=== PATIENT | male | born 1940 | race Caucasian/White ===

== ENCOUNTER 2018-08-30 09:06 | Day surgery (SDC) | payer MEDICARE, OTHER ==
[~2018-08-30 09:06] MED LIST: Lactated Ringers 1,000 ML IV SCH; Lidocaine 1%/Sod Bicarbonate in NS 8.4% 1 ML Syringe IDERM PRN; Sodium Chloride 0.9% 10 ML Syringe FLUSH PRN
--- NOTE | 2018-08-30 10:12 | PCM.PREANE ---
Preanesthetic Assessment - Anesthesia/Transfusion/Family Hx Anesthesia History: Prior Anesthesia Without Reaction Family History of Anesthesia Reaction: No Transfusion History: No Prior Transfusion(s) Intubation History: Unknown - Review of Systems General: Fatigue (with bowel prep), Chills (with bowel prep) Pulmonary: No Symptoms (Former Smoker: quit 1970) Cardiovascular: No Symptoms (HTN,CAD, history of bradycardia, cardiac stent times on placed 01/19/2014 (on plavix)), Lightheadedness (this am getting out of bed and climbing steps.) Gastrointestinal: No Symptoms (GERD diet related. ( takes tums on occasion, 2 times per week)) Neurological: No Symptoms Other: Reports: Diabetes (0941 Blood sugar= 182) - Physical Assessment NPO Status Date: 08/29/18 NPO Status Time: 20:00 (fluids) Pulse: 48 O2 Sat by Pulse Oximetry: 98 Respiratory Rate: 16 Blood Pressure: 160/63 Temperature: 36.9 C Height: 1.75 m Weight: 89 kg ASA Class: 3 Mental Status: Alert & Oriented x3 Airway Class: Mallampati = 3 Dentition: Reports: Normal Dentition, Caries Thyro-Mental Finger Breadths: 3 Mouth Opening Finger Breadths: 2 ROM/Head Extension: Full Lungs: Clear to Auscultation, Normal Respiratory Effort Cardiovascular: Regular Rate, Regular Rhythm, No Murmurs - Lab Values: Laboratory Last Values POC Glucose 182 mg/dL (83-110) H 08/30/18 09:41 All lab values reviewed and noted and within acceptable ranges to proceed with colonoscopy. - Imaging/EKG Impressions: Echocardiogram 2016: EF= 65% EKG: Sinus bradycardia rate=53 first degree AV block, RBBB 05/23/2018 In April 2018, valet cashier gave clear bill of health regarding cardiac presentation. - Allergies Allergies/Adverse Reactions: Allergies Allergy/AdvReac Type Severity Reaction Status Date / Time Siuzczs-Gjw-Khs Reductase Allergy Body Aches Verified 08/30/18 10:09 Inhibitor - Anesthesia Plan Pre-Op Medication Ordered: None - Acknowledgements Anesthesia Type Planned: MAC Pt an Appropriate Candidate for the Planned Anesthesia: Yes Alternatives and Risks of Anesthesia Discussed w Pt/Guardian: Yes Pt/Guardian Understands and Agrees with Anesthesia Plan: Yes PreAnesthesia Questionnaire HEENT History: Reports: Impaired Vision Cardiovascular History: Reports: CAD, High Cholesterol, Hypertension Gastrointestinal History: Reports: Other (See Below) Other Gastrointestinal History: Hemorrhoids, Colon Polyps Genitourinary History: Reports: Other (See Below) Other Genitourinary History: Hematuria, Nephrolithiasis Endocrine/Metabolic History: Reports: Diabetes, Type II, Obesity/BMI 30+ - Past Surgical History HEENT Surgical History: Reports: None Cardiovascular Surgical History: Reports: Coronary Artery Stent Respiratory Surgical History: Reports: None GI Surgical History: Reports: Colon, Polypectomy, Other (See Below) Other GI Surgeries/Procedures: Hemorrhoidectomy Other Female Surgeries/Procedures: Cystoscopy Male Surgical History: Reports: Other (See Below) Endocrine Surgical History: Reports: None Neurological Surgical History: Reports: None Musculoskeletal Surgical History: Reports: Other (See Below) Other Musculoskeletal Surgeries/Procedures:: Left Shoulder Video Arthroscopy with Rotator Cuff Repair Dermatological Surgical History: Reports: None - SUBSTANCE USE Smoking Status *Q: Former Smoker - HOME MEDS Home Medications: Home Meds Cinnamon Bark [Cinnamon] 500 mg PO BID 02/17/14 [History] Fish Oil/Borage/Flax/Om3,6,9#1 [Astatula 3-6-9 Complex Softgel] 1 each PO DAILY [History] Glimepiride 2 mg PO DAILY 02/17/14 [History] Losartan [Cozaar] 100 mg PO DAILY 02/17/14 [History] Multivitamin [Multivitamins] 1 each PO DAILY 02/17/14 [History] Rosuvastatin [Crestor] 20 mg PO BEDTIME 02/17/14 [History] Ubidecarenone [Co Q-10] 50 mg PO DAILY 02/17/14 [History] metFORMIN [Glucophage] 1,000 mg PO TID 02/17/14 [History] Aspirin [Adult Aspirin] 81 mg PO DAILY 08/29/18 [History] Clopidogrel [Plavix] 75 mg PO DAILY 08/29/18 [History] Garlic 1,000 mg PO DAILY 08/29/18 [History] Saxagliptin HCl [Onglyza] 5 mg PO DAILY 08/29/18 [History] Vitamin B Complex [B Complex] 1 tab PO DAILY 08/29/18 [History] - CURRENT (IN HOUSE) MEDS Current Meds: Current Medications Lactated Ringer's (Ringers, Lactated) 1,000 mls @ 125 mls/hr IV ASDIRECTED KEO Stop: 08/30/18 23:00 Lidocaine/Sodium Bicarbonate (Buffered Lidocaine 1% In Ns 8.4%) 0.25 ml IDERM ONETIME PRN PRN Reason: Prior to IV Start Stop: 08/30/18 18:00 Sodium Chloride (Saline Flush) 10 ml FLUSH ASDIRECTED PRN PRN Reason: Keep Vein Open Stop: 08/30/18 18:00
[2018-08-30] MEDS ORDERED: fentaNYL 100 MCG/2 ML SDV ONE (10:17)
[2018-08-30] MEDS ORDERED: Propofol 200 MG/20 ML SDV ONE ×3 (10:17→13:25)
[2018-08-30] MEDS ORDERED: Lidocaine 1% 4 ML ONE (11:29)
--- NOTE | 2018-08-30 12:56 | PCM48HPAN ---
Post Anesthesia Note - EVALUATION WITHIN 48HRS OF ANESTHETIC Vital Signs in Normal Range: Yes Patient Participated in Evaluation: Yes Respiratory Function Stable: Yes Airway Patent: Yes Cardiovascular Function Stable: Yes Hydration Status Stable: Yes Pain Control Satisfactory: Yes Nausea and Vomiting Control Satisfactory: Yes Mental Status Recovered: Yes Pulse Rate: 49 SaO2: 97 Resp Rate: 17 Temperature: 36.6 C Blood Pressure: 134/80
--- NOTE | 2018-08-30 13:05 | PCM.OPNOTE ---
- General Post-Op/Procedure Note Date of Surgery/Procedure: 08/30/18 Operative Procedure(s): colonoscopy with polypectomy Findings: colon polyps Pre Op Diagnosis: family history of colon cancer Post-Op Diagnosis: same Anesthesia Technique: MAC Primary Surgeon: Paulette Sloan Anesthesia Provider: Nancy Rg Pathology: 1. hepatic flexure polyp 2. Transverse colon polyp x2 Fluid Replacement, Intraop: 800 Output, Urine Amount: 0 EBL in mLs: 0 Complications: none apparent Condition: Good
--- NOTE | 2018-08-30 13:10 | PCM.PRNOTE ---
- Free Text/Narrative Note: Operative Report Date of Surgery/Procedure: August 30, 2018 Operative Procedure: Colonoscopy to cecum with polypectomy Pre Op Diagnosis: colorectal cancer surveillance with high risk for colon cancer (first-degree relative with colon cancer) Post-Op Diagnosis: Same Surgeon: Paulette Sloan Anesthesia Technique: MAC Anesthesia Provider: Nancy Rg CRNA IV Fluid Replacement, Intraop: 800cc Output, Urine Amount: 0cc EBL : 0cc Findings: 1. Hepatic flexure polyp 2. Transverse colon polyp x2 Specimens: 1. Hepatic flexure polyp 2. Transverse colon polyp x2 Indication: The patient is a 77 year-old gentleman who presented to the outpatient clinic requesting colorectal cancer screening. The patient has a history of colon cancer in a first-degree relative. He's had a colonoscopy more than 10 years ago. We discussed the procedure of a surveillance colonoscopy including the polypectomy and biopsy. Risks of bleeding and perforation were discussed, the patient understood and wished to proceed. Written and consent was obtained Description of the procedure: The patient was brought to the endoscopy suite and placed in the left lateral decubitus position. Appropriate monitors were applied. The patient was given MAC anesthesia. An anorectal examination was performed, revealing internal hemorrhoids with a small external component and external anal skin tags. The scope was placed into the rectum and advanced to cecum with minimal difficulty requiring abdominal pressure to reach the cecum. The patients cecum was entered , and the ileocecal valve and appendiceal orifice were identified and normal. At this point, the scope was withdrawn, paying careful attention to the mucosa. The patient had . Good bowel prep, allowing for visualization of 85-90 % of the mucosa. A polyp in the hepatic flexure as well as 2 polyps in the transverse colon were seen. These were removed with cold biopsy forceps and sent for histology. In the rectum, the scope was retroflexed and no abnormalities were noted, except for some hemorrhoidal tissue. The scope was placed back in the lumen and the excess air was aspirated. The patient tolerated the procedure well. Complications: none apparent Condition: Good, transported to PACU in stable condition Paulette Sloan MD General Surgery
[2018-08-30 14:11] VITALS: BP 153/75
== END 2018-08-30 13:55 | disposition home or self-care (01) ==
LOC: JD.SDS 09:06
PROVIDERS: ATTEND Surgery
DX: Z12.11 Encounter for screening for malignant neoplasm of colon (principal); D12.3 Benign neoplasm of transverse colon; K63.5 Polyp of colon; K64.9 Unspecified hemorrhoids; I10 Essential (primary) hypertension; E11.9 Type 2 diabetes mellitus without complications; E66.9 Obesity, unspecified; Z68.30 Body mass index [BMI] 30.0-30.9, adult; E78.00 Pure hypercholesterolemia, unspecified; I25.10 Atherosclerotic heart disease of native coronary artery without angina pectoris; E78.5 Hyperlipidemia, unspecified; Z86.010 Personal history of colon polyps; Z87.891 Personal history of nicotine dependence; Z79.84 Long term (current) use of oral hypoglycemic drugs; Z79.82 Long term (current) use of aspirin; Z79.02 Long term (current) use of antithrombotics/antiplatelets; Z79.899 Other long term (current) drug therapy; Z95.5 Presence of coronary angioplasty implant and graft; Z88.8 Allergy status to other drugs, medicaments and biological substances
CPT/HCPCS: 45380; 82962; 88305; J2001; J2704; J7120; 00811; J3010

== ENCOUNTER 2021-02-04 10:24 | Emergency (ER) | payer MEDICARE, OTHER ==
[2021-02-04 10:39] VITALS: BP 82/46; PULSE 73
--- NOTE | 2021-02-04 11:20 | CT ---
Head CT Technique: Multiple axial sections through the brain were obtained. Intravenous contrast was not utilized. Reconstructed coronal and sagittal images were obtained. Comparison: No prior intracranial imaging is available. Findings: Ventricles along with basal cisterns and sulci over the convexities are moderately prominent. No abnormal parenchymal densities are seen. No evidence of intracranial hemorrhage is seen. No midline shift or mass-effect is appreciated. Bone window settings were reviewed. Visualized mastoid sinuses and paranasal sinuses show nothing acute. No acute calvarial abnormality is appreciated. Impression: 1. Senescent change as noted above. 2. No acute intracranial hemorrhage or other acute abnormality is appreciated. Diagnostic code #2
--- NOTE | 2021-02-04 11:51 | EDM.PDOC ---
ED HPI GENERAL MEDICAL PROBLEM - General Chief Complaint: Lower Extremity Injury/Pain Stated Complaint: KNEE AND HIP PAIN Time Seen by Provider: 02/04/21 10:34 Source of Information: Reports: Family, [facility] Records History Limitations: Reports: Altered Mental Status, Other (patient has dementia) - History of Present Illness INITIAL COMMENTS - FREE TEXT/NARRATIVE: The patient presents with his for right hip and knee pain. He is a resident of [facility]. He has bad dementia. She says since 01/24 he has fallen 4 times. It appears his knee gives out. He is on some psych meds and they make him sleep during the day and then he is up at night and he falls. He has pain in his right hip and right knee. He also is on plavix and it is unknown if he hit his head. He has no fever, chills, cough, chest pain, shortness of breath, abdominal pain, nausea and vomiting. Onset: Gradual Duration: Day(s): Location: Reports: Lower Extremity, Right (hip and knee) Quality: Reports: Sharp Severity: Mild Improves with: Reports: Immobilization Worsens with: Reports: Movement Context: Reports: Trauma (falls) Associated Symptoms: Reports: No Other Symptoms - Related Data Allergies Allergy/AdvReac Type Severity Reaction Status Date / Time Ueihgnx-Teh-Ysw Reductase AdvReac Body Aches Verified 08/30/18 13:19 Inhibitor Home Meds: Home Meds RX: Losartan [Cozaar] 100 mg PO DAILY 02/17/14 [History] RX: metFORMIN [Glucophage] 1,000 mg PO BID 02/17/14 [History] RX: Aspirin [Adult Aspirin] 81 mg PO BID 08/29/18 [History] RX: Clopidogrel [Plavix] 75 mg PO QAM 08/29/18 [History] Alogliptin Benzoate [Alogliptin] 12.5 mg PO DAILY 02/04/21 [History] DULoxetine [Cymbalta] 20 mg PO BID 02/04/21 [History] Diclofenac Sodium [Voltaren 1% Gel] 4 gm TOP BID 02/04/21 [History] Non-Formulary Medication [NF Drug] 20 mg PO BEDTIME 02/04/21 [History] QUEtiapine Fumarate [Seroquel] 200 mg PO BID 02/04/21 [History] RX: Acetaminophen 650 mg PO TID 02/04/21 [History] RX: Glimepiride 2 mg PO DAILY 02/04/21 [History] RX: LORazepam [Ativan] 0.5 mg PO Q8H PRN 02/04/21 [History] RX: Memantine HCl 10 mg PO BID 02/04/21 [History] RX: Naproxen Sodium 220 mg PO Q12H PRN 02/04/21 [History] RX: Rosuvastatin [Crestor] 10 mg PO DAILY 02/04/21 [History] traMADol [Ultram] 50 mg PO Q6H PRN #20 tab 02/04/21 [Rx] Past Medical History HEENT History: Reports: Impaired Vision Cardiovascular History: Reports: CAD, High Cholesterol, Hypertension Gastrointestinal History: Reports: Other (See Below) Other Gastrointestinal History: Hemorrhoids, Colon Polyps Genitourinary History: Reports: Other (See Below) Other Genitourinary History: Hematuria, Nephrolithiasis Psychiatric History: Reports: Alzheimers Disease, Dementia Endocrine/Metabolic History: Reports: Diabetes, Type II, Obesity/BMI 30+ - Past Surgical History HEENT Surgical History: Reports: None Cardiovascular Surgical History: Reports: Coronary Artery Stent Respiratory Surgical History: Reports: None GI Surgical History: Reports: Colon, Polypectomy, Other (See Below) Other GI Surgeries/Procedures: Hemorrhoidectomy Male Surgical History: Reports: Other (See Below) Endocrine Surgical History: Reports: None Neurological Surgical History: Reports: None Musculoskeletal Surgical History: Reports: Other (See Below) Other Musculoskeletal Surgeries/Procedures:: Left Shoulder Video Arthroscopy with Rotator Cuff Repair Dermatological Surgical History: Reports: None Social & Family History - Tobacco Use Tobacco Use Status *Q: Never Tobacco User Second Hand Smoke Exposure: No - Caffeine Use Caffeine Use: Reports: Coffee, Tea - Recreational Drug Use Recreational Drug Use: No Review of Systems - Review of Systems Review Of Systems: See Below Constitutional: Reports: No Symptoms Eyes: Reports: No Symptoms Ears: Reports: No Symptoms Nose: Reports: No Symptoms Mouth/Throat: Reports: No Symptoms Respiratory: Reports: No Symptoms Cardiovascular: Reports: No Symptoms GI/Abdominal: Reports: No Symptoms Genitourinary: Reports: No Symptoms Musculoskeletal: Reports: Other (Right knee and hip) ED EXAM, GENERAL - Physical Exam Exam: See Below Exam Limited By: No Limitations General Appearance: Alert, No Apparent Distress Ears: Normal External Exam Nose: Normal Inspection Head: Atraumatic, Normocephalic Neck: Normal Inspection Respiratory/Chest: No Respiratory Distress, Lungs Clear, Normal Breath Sounds Cardiovascular: Regular Rate, Rhythm, No Edema, No Murmur GI/Abdominal: Soft, Non-Tender, No Organomegaly, No Mass Back Exam: Normal Inspection Extremities: Other (Mild pain upon palpation to the right hip and knee but no edema. Good sensation and pulses distally.) #1 Interpretation EKG Date: 02/04/21 Time: 10:47 Rhythm: NSR Rate (Beats/Min): 75 [place]: Normal P-Wave: Present QRS: RBBB ST-T: Depressed (ST depressed in V1, V2 and V3) QT: Normal EKG Interpretation Comments: PVC with no acute changes from prior Course - Vital Signs Last Recorded V/S: Last Vital Signs Temp 97.3 F 02/04/21 10:30 Pulse 73 02/04/21 10:30 Resp 16 02/04/21 10:30 BP 82/46 L 02/04/21 10:30 Pulse Ox 98 02/04/21 10:30 - Orders/Labs/Meds Orders: Active Orders 24 hr Category Date Time Status Cardiac Monitoring [RC] . DIRECTED Care 02/04/21 10:42 Active EKG Documentation Completion [RC] STAT Care 02/04/21 10:42 Active Labs: Laboratory Tests 02/04/21 02/04/21 Range/Units 11:16 11:16 WBC 8.33 (4.23-9.07) K/mm3 RBC 3.41 L (4.63-6.08) M/mm3 Hgb 11.4 L (13.7-17.5) gm/dl Hct 33.7 L (40.1-51.0) % MCV 98.8 H (79.0-92.2) fl MCH 33.4 H (25.7-32.2) pg MCHC 33.8 (32.2-35.5) g/dl RDW Std Deviation 46.5 H (35.1-43.9) fL Plt Count 199 (163-337) K/mm3 MPV 10.3 (9.4-12.3) fl Neut % (Auto) 81.6 H (34.0-67.9) % Lymph % (Auto) 9.5 L (21.8-53.1) % [place] % (Auto) 5.9 (5.3-12.2) % Eos % (Auto) 2.6 (0.8-7.0) Baso % (Auto) 0.2 (0.1-1.2) % Neut # (Auto) 6.79 H (1.78-5.38) K/mm3 Lymph # (Auto) 0.79 L (1.32-3.57) K/mm3 [place]on # (Auto) 0.49 (0.30-0.82) K/mm3 Eos # (Auto) 0.22 (0.04-0.54) K/mm3 Baso # (Auto) 0.02 (0.01-0.08) K/mm3 Manual Slide Review Normal smear Sodium 142 (136-145) mEq/L Potassium 4.2 (3.5-5.1) mEq/L Chloride 106 (98-107) mEq/L Carbon Dioxide 23 (21-32) mEq/L Anion Gap 17.2 H (5-15) BUN 33 H (7-18) mg/dL Creatinine 1.5 H (0.7-1.3) mg/dL Est Cr Clr Drug Dosing TNP Estimated GFR (MDRD) 45 (>60) mL/min BUN/Creatinine Ratio 22.0 H (14-18) Glucose 98 (70-99) mg/dL Calcium 8.6 (8.5-10.1) mg/dL Magnesium 1.5 L (1.8-2.4) mg/dL Total Bilirubin 0.6 (0.2-1.0) mg/dL AST 17 (15-37) U/L ALT 26 (16-63) U/L Alkaline Phosphatase 50 (46-116) U/L Troponin I < 0.017 (0.00-0.056) ng/mL C-Reactive Protein <0.2 (<1.0) mg/dL Total Protein 6.2 L (6.4-8.2) g/dl Albumin 3.5 (3.4-5.0) g/dl Globulin 2.7 gm/dL Albumin/Globulin Ratio 1.3 (1-2) - Re-Assessments/Exams Free Text/Narrative Re-Assessment/Exam: 02/04/21 12:38 I ordered an EKG, CT of his head, labs, x-ray of his right hip and right knee. His EKG shows a NSR, RBBB, with PVCs and no changes from prior. 02/04/21 12:[address] shows senescent change. No acute intracranial hemorrhage or other acute abnormality is appreciated. The x-ray of his hip shows osteopenia and mild vascular calcification. Nothing acute is seen on right hip exam. The x-ray of his knee shows no acute abnormality is appreciated on right knee exam. His Hgb is low at 11.4. His creatinine is elevated at 1.5. His troponin is negative. I will give him some ultram and encourage him to use a walker and possible PT. Departure - Departure Time of Disposition: 12:45 Disposition: Home, Self-Care 01 Condition: Good Clinical Impression: Arthritis of right knee, Right hip pain Fall Qualifiers: Encounter type: initial encounter Qualified Code(s): W19.XXXA - Unspecified fall, initial encounter - Discharge Information *PRESCRIPTION DRUG MONITORING PROGRAM REVIEWED*: Not Applicable *COPY OF PRESCRIPTION DRUG MONITORING REPORT IN PATIENT PHOEBE: Not Applicable Prescriptions: traMADol [Ultram] 50 mg PO Q6H PRN #20 tab PRN Reason: Pain Referrals: Esteban Amado MD [Primary Care Provider] - 1 Week Forms: ED Department Discharge Additional Instructions: Keep taking your medications as prescribed. Take ultram 50mg every 6 hours as needed for pain. Try to use a walker to help with the falls. Follow up with Dr Amado within a week. Please return if you are worse. Sepsis Event Note (ED) - Evaluation Sepsis Screening Result: No Definite Risk - Focused Exam Vital Signs: Vital Signs Temp Pulse Resp BP Pulse Ox 02/04/21 10:30 97.3 F 73 16 82/46 L 98 - My Orders Last 24 Hours: My Active Orders 02/04/21 10:42 Cardiac Monitoring [RC] . DIRECTED EKG Documentation Completion [RC] STAT - Assessment/Plan Last 24 Hours: My Active Orders 02/04/21 10:42 Cardiac Monitoring [RC] . DIRECTED EKG Documentation Completion [RC] STAT
--- NOTE | 2021-02-04 11:54 | CR ---
Right hip: AP and slight frog-leg lateral views of the right hip were obtained. Comparison: No prior hip studies available. Joint space within the right hip is fairly well preserved. Slight vascular calcification is noted. Osteopenia is present. No acute fracture or subluxation is seen. Impression: 1. Osteopenia and mild vascular calcification. 2. Nothing acute is seen on right hip exam. Diagnostic code #2
--- NOTE | 2021-02-04 11:56 | CR ---
Right knee: 4 views of the right knee were obtained. Comparison: No prior knee study. Medial and lateral joint spaces are fairly well preserved. No joint effusion is seen. Small spur is noted at the attachment of the quadriceps tendon to the patella. No acute fracture or other bony abnormality is seen. Calcification is seen posterior to the knee most likely vascular in etiology. Impression: 1. Findings as noted above. 2. No acute abnormality is appreciated on right knee exam. Diagnostic code #2
== END 2021-02-04 13:00 | disposition home or self-care (01) ==
LOC: JD.ED 10:24
DX: M25.551 Pain in right hip (principal); M17.11 Unilateral primary osteoarthritis, right knee; I25.10 Atherosclerotic heart disease of native coronary artery without angina pectoris; E78.00 Pure hypercholesterolemia, unspecified; I10 Essential (primary) hypertension; G30.9 Alzheimer's disease, unspecified; F02.80 Dementia in other diseases classified elsewhere, unspecified severity, without behavioral disturbance, psychotic disturbance, mood disturbance, and anxiety; E11.9 Type 2 diabetes mellitus without complications; E66.9 Obesity, unspecified; Z88.8 Allergy status to other drugs, medicaments and biological substances; Z79.82 Long term (current) use of aspirin; Z79.02 Long term (current) use of antithrombotics/antiplatelets; Z79.84 Long term (current) use of oral hypoglycemic drugs; Z79.899 Other long term (current) drug therapy; W19.XXXA Unspecified fall, initial encounter
CPT/HCPCS: 36415; 70450; 70450-26; 73502-26-RT; 73502-RT; 73564-26-RT; 73564-RT; 80053; 83735; 84484; 85025; 86140; 93005; 93010; 99284; 99284-25